=== PATIENT | female | born 1970 | race African-American/Black ===

== ENCOUNTER 2017-08-08 09:16 | Emergency (ER) | payer OTHER ==
[~2017-08-08] VITALS: Ht 160 cm; Wt 92.0 kg
[2017-08-08] MEDS ORDERED: NEBI10TA2 PO (10:45)
[2017-08-08] MEDS ORDERED: LINA72CA PO (10:45)
[2017-08-08] MEDS ORDERED: INSU100I7 SQ (10:45)
[2017-08-08] MEDS ORDERED: ATOR20TA65 PO (10:45)
[2017-08-08] MEDS ORDERED: CIPR-263 PO (10:45)
[2017-08-08] MEDS ORDERED: VALS320T2 PO (10:45)
[2017-08-08] MEDS ORDERED: AMLO10TA80 PO (10:45)
[2017-08-08] MEDS ORDERED: TRAM50TA3 PO (10:45)
[2017-08-08] MEDS ORDERED: DEXL60CA3 PO (10:45)
[2017-08-08] MEDS ORDERED: SODIUM CHLORIDE 0.9% 10ML VIAL ONE (11:39)
[2017-08-08] MEDS ORDERED: IOHEXOL-300 100 ML BOTTLE ONE (11:39)
[2017-08-08] MEDS ORDERED: SODIUM CHLORIDE 0.9% 1,000 ML IV ONE (14:34)
[2017-08-08] MEDS ORDERED: ONDANSETRON HCL 4MG/2ML VIAL IV STA (14:34)
[2017-08-08] MEDS ORDERED: MORPHINE SULFATE 4 MG/ML CPJ (NOT FOR IM USE) IV STA (14:34)
[2017-08-08 15:02] LABS: CLARITY URINE CLEAR (CLEAR); COLOR URINE DARK YELLOW (YELLOW); GLUCOSE URINE 3+ (NEGATIVE); KETONES URINE NEGATIVE (NEGATIVE); LEUKOCYTE ESTERASE URINE NEGATIVE (NEGATIVE); NITRITE URINE NEGATIVE (NEGATIVE); OCCULT BLOOD URINE NEGATIVE (NEGATIVE); PROTEIN URINE NEGATIVE (NEGATIVE); SPECIFIC GRAVITY URINE 1.026 (1.005-1.030); UROBILINOGEN URINE 0.2 E.U./dL (0.2-1.0)
[2017-08-08 15:20] LABS: HCG SCREEN NEGATIVE
[2017-08-08 15:36] LABS: BASOPHILS % 0.8 % (0.0-2.0); HEMATOCRIT. 39.9 % (36.0-48.0); HEMOGLOBIN. 13.4 g/dL (12.0-16.0); LYMPHOCYTES % 35.8 % (20.0-50.0); MEAN CORPUSCULAR HEMOGLOBIN 29.2 pg (28.0-32.0); MEAN CORPUSCULAR VOLUME 86.9 fL (81.0-99.0); MEAN PLATELET VOLUME 7.2 fl (7.4-10.4); MONOCYTES % 7.6 % (2.0-8.0); NEUTROPHILS % 53.8 % (40.0-76.0); PLATELET 395 x1000/uL (130-400); RED BLOOD CELL COUNT 4.59 mill/uL (4.2-5.4)
[2017-08-08 15:38] LABS: CHLORIDE 100 mEq/L (98-107)
[2017-08-08 15:39] LABS: PROTHROMBIN TIME 10.7 sec (9.4-11.6)
[2017-08-08 15:47] LABS: CARBON DIOXIDE 28 mEq/L (21-32)
[2017-08-08 17:24] VITALS: BP 107/65
== END 2017-08-08 18:13 | disposition home or self-care (01) ==
LOC: ER 09:16
DX: R10.31 Right lower quadrant pain (principal); E11.8 Type 2 diabetes mellitus with unspecified complications; E78.00 Pure hypercholesterolemia, unspecified; I10 Essential (primary) hypertension; K57.90 Diverticulosis of intestine, part unspecified, without perforation or abscess without bleeding; E03.9 Hypothyroidism, unspecified; D25.9 Leiomyoma of uterus, unspecified; F17.210 Nicotine dependence, cigarettes, uncomplicated; Z79.4 Long term (current) use of insulin; Z88.6 Allergy status to analgesic agent; Z90.710 Acquired absence of both cervix and uterus
CPT/HCPCS: 36415; 74177; 80053; 81001; 83690; 84703; 85025; 85610; 96361; 96374; 96375; 99285; A4216; J2270; J2405; J7030; Q9967; Z7610

== ENCOUNTER 2021-03-05 13:29 | Emergency (ER) | payer OTHER ==
[~2021-03-05] VITALS: Ht 160 cm; Wt 83.6 kg
[~2021-03-05 13:29] MED LIST: AMLO10TA80 PO; ATOR20TA65 PO; CIPR-263 PO; DEXL60CA3 PO; INSU100I7 SQ; LINA72CA PO; NEBI10TA2 PO; TRAM50TA3 PO; VALS320T2 PO
[2021-03-05 13:36] VITALS: BP 140/77
[2021-03-05 15:20] LABS: CLARITY URINE CLEAR (CLEAR); COLOR URINE YELLOW (YELLOW); KETONES URINE NEGATIVE (NEGATIVE); LEUKOCYTE ESTERASE URINE NEGATIVE (NEGATIVE); NITRITE URINE NEGATIVE (NEGATIVE); OCCULT BLOOD URINE NEGATIVE (NEGATIVE); PH URINE 5.5 (4.5-8.0); PROTEIN URINE TRACE (NEGATIVE); SPECIFIC GRAVITY URINE 1.037 (1.005-1.030); UROBILINOGEN URINE 0.2 E.U./dL (0.2-1.0)
[2021-03-05] MEDS ORDERED: NAPR-681 PO (16:01)
[2021-03-05] MEDS ORDERED: GABA-532 PO (16:01)
== END 2021-03-05 16:23 | disposition home or self-care (01) ==
LOC: ER 13:29
DX: M54.5 Low back pain (principal); M79.2 Neuralgia and neuritis, unspecified; E11.9 Type 2 diabetes mellitus without complications; E78.00 Pure hypercholesterolemia, unspecified; I10 Essential (primary) hypertension; E89.0 Postprocedural hypothyroidism; Z88.6 Allergy status to analgesic agent; Z88.5 Allergy status to narcotic agent; Z79.899 Other long term (current) drug therapy; Z90.710 Acquired absence of both cervix and uterus
CPT/HCPCS: 72100; 81003; 82962; 99284